=== PATIENT | male | born 1935 | race Caucasian/White ===

== ENCOUNTER → 2024-08-30 09:36 | Outpatient (REF) | payer OTHER, SELFPAY | LOC: HWRAD 09:36 | PROVIDERS: ATTENDING PHYSICIAN Urology; FAMILY PHYSICIAN Family Medicine | DX: R31.9 Hematuria, unspecified (principal) | CPT/HCPCS: 76770 ==

== ENCOUNTER 2024-09-24 16:26 | Emergency (ER) | payer OTHER, SELFPAY ==
[2024-09-24 16:32] VITALS: BP 128/75
[2024-09-24 17:06] VITALS: BP 158/88
--- NOTE | 2024-09-24 17:21 | ED.CVA ---
History of Present Illness
General
Chief Complaint: CVA/TIA Symptoms
Source: patient
Exam Limitations: none
Time Seen by Provider: 09/24/24 16:49
Onset of Stroke Symptoms
Onset of symptoms known: No
Time pt last seen normal is known: No
History of Present Illness
History of Present Illness:
89-year-old male fairly healthy presents with 2 to 3 days worth of fatigue fever cough and confusion. Family states he has been mixing his words up. He denies a headache or chest pain. There has been no vomiting. They were concerned for
potential stroke giving his mixing up of words. He lives independently and still works. No other complaints at this time
Past History
Past History
ED Past Medical History: Cancer (Right kidney), HTN, Hypercholesterolemia and Other (Hematuria, Urinary retention, ,)
ED Past Surgical History: Appendectomy, Urological (R kidney removed for CA) and Other (Hernia repair, Brain tumor)
Social History
Tobacco: Non-smoker
Alcohol: None
Drug: None
Personal:
Living: with family
Employment: Retired
Family History
Family History: Other (Noncontributory)
Phy Exam
Physical Exam
Physical Exam:
General: Well-appearing male no acute respiratory distress
HEENT: Normocephalic atraumatic
Heart: Regular rate and rhythm no murmurs lungs: Clear no wheeze
Abdomen is soft nontender nondistended no guarding or rebound
Neurologic exam: Alert and oriented normal gait no drift finger-nose [id number] intact. No facial asymmetry no dysarthria or aphasia
Extremities: No cyanosis or edema
Course
Orders/Labs/Results
Orders:
Orders
09/24/24 16:39
CT Head W/o Iv Contrast Urgent
Comment:
Reason For Exam: expressive aphasia x2 days
09/24/24 17:00
Basic Metabolic Panel Urgent
COVID-19 Antigen Urgent
Source: Nasal Swab
Complete Blood Count/With Diff Urgent
Urine Microscopic Reflex Cult Urgent
Urine Reflex Culture from [facility] [Urinalysis Reflex To Culture] Urgent
Date Specimen was Collected: 09/24/24
Time Specimen was Collected: 16:56
Influenza A+B Rapid Molecular Urgent
MANUEL Source: Nasal Swab
Specimen Description:
09/24/24 17:40
CR Chest - 2 Views Urgent
Comment:
Reason For Exam: weakness
Abnormal Lab Results
09/24/24
17:00
RBC 4.54 L 10^6/uL
(4.70-6.10)
MCHC 32.9 L g/dL
(33.0-37.0)
Absolute Monos (auto) 0.7 H 10^3/uL
(0.1-0.6)
Monocytes % 13.7 H %
(1.7-9.3)
BUN 35 H mg/dl
(9-20)
Creatinine 1.5 H mg/dL
(0.7-1.3)
Glucose 103 H mg/dl
(70-99)
Urine Bacteria (Reflex) Few A
(Negative)
Urine Albumin (Reflex) 2+ A
(Neg - Trace)
09/24/24 17:00
09/24/24 17:00
Vital Signs
Initial and Last Documented VS:
Initial Vital Signs
Temp Pulse Resp BP Pulse Ox
98.3 F 76 18 128/75 99
09/24/24 16:32 09/24/24 16:32 09/24/24 16:32 09/24/24 16:32 09/24/24 16:32
Last Documented Vital Signs
Temp Pulse Resp BP Pulse Ox
98.3 F 60 19 135/76 97
09/24/24 16:32 09/24/24 18:30 09/24/24 18:30 09/24/24 18:00 09/24/24 18:30
MDM/Problems Addressed
Differential Diagnosis Includes:
Confusion weakness fever. Consider encephalopathy from infection such as COVID flu or electrolyte abnormality. Also consider CVA however less likely.
Will check COVID and flu test chest x-ray urinalysis CT of head and basic labs
*Critical Care Note
Total Time (30-74mins, 75-104mins- exclusive of procedures): Not Applicable
Update Note
Update Note:
Patient reexamined looks well CT head negative chest x-ray clear patient tested positive for influenza. Kidney functions at baseline with a creatinine of 1.5. Discussion was had with patient and family. I do not think patient's symptoms are
patient care representative of a stroke but more so weakness from having the flu. Will beyond the window for Tamiflu. Patient wishes to go home. Patient's family comfortable with this as well supportive care recommended. Stable for discharge
ED Attending Note
-
Portions of this chart may have been created with voice recognition software.� Occasional wrong word or��sound alike� substitutions may have occurred due to the inherent limitations of voice recognition software.
Discharge Plan
Departure
Patient Disposition: Home (Routine Discharge)
Date of Disposition: 09/24/24
Time of Disposition: 19:45
Patient with high blood pressure during this ER visit?: No
Discharge Problem:
Influenza A
Instructions: Flu, Delirium (Confusion) (DC)
Prescriptions:
No Action
acetaminophen 325 MG tablet
650 mg PO Q6HPRN PRN (Reason: mild pain/ fever>100.5F) 0RF
Referrals:
Michoacano Agrawal DO [Family Provider] -
Activity Restrictions/Additional Instructions:
As discussed, you have the flu. Rest. Drink plenty of fluids. Use Tylenol or ibuprofen if needed for fever. Return here for worsening symptoms otherwise follow-up with your doctor
Interventions
Interventions:
*Risk Screen - Suicide Last Done: 09/24/24 16:36
*General Assessment Last Done: 09/24/24 17:01
*Neglect/Abuse Screening Last Done: 09/24/24 16:36
*ED COVID-19 Vaccine History Last Done: 09/24/24 16:36
ED- Pulmonary Assessment Last Done: 09/24/24 17:05
ED- Neurological Assessment Last Done: 09/24/24 17:05
ED- Cardiac Assessment Last Done: 09/24/24 17:05
ED Swallowing Screen Last Done: 09/24/24 17:05
Discharge Date and Time
Print Language: [id number]
[2024-09-24 17:26] LABS: % Basophils 0.4 % (0-2); % Eosinophils 2.1 % (0-6); % Immature Granulocytes 0.2 % (0-0.5); % Lymphocytes 27.7 % (20.5-51.1); % Monocytes 13.7 % (1.7-9.3); % Neutrophils 55.9 % (42.2-75.2); Absolute Eosinophils 0.1 10^3/uL (0-0.7); Absolute Lymphocytes 1.3 10^3/uL (1.2-3.4); Absolute Monocytes 0.7 10^3/uL (0.1-0.6); Absolute Neutrophils 2.7 10^3/uL (1.4-6.5); Hematocrit 41.6 % (39.0-52.0); Hemoglobin 13.7 g/dL (13.0-18.0); Mean Corp Hgb Conc. 32.9 g/dL (33.0-37.0); Mean Corpuscular Hgb 30.2 pg (27.0-31.0); Mean Corpuscular Volume 91.6 fL (80.0-94.0); Mean Platelet Volume 8.7 fL (7.4-10.4); Nucleated Red Blood Cells % 0 % (-); Platelet Count 174 10^3/uL (130-400); Red Blood Cell Count 4.54 10^6/uL (4.70-6.10); Red Cell Dist. Width 14.5 % (11.5-14.5); Urine Albumin 2+ (Neg - Trace); Urine Bilirubin Negative (Negative); Urine Character Clear (Clear); Urine Color Yellow; Urine Glucose Negative (Negative); Urine Ketone Negative (Negative); Urine Leukocyte Negative (Negative); Urine Nitrite Negative (Negative); Urine Occult Blood Negative (Negative); Urine Urobilinogen Negative (Neg - 1+); White Blood Cell Count 4.8 10^3/uL (4.8-10.8)
[2024-09-24 17:30] LABS: Urine Mucus Few
[2024-09-24 17:31] LABS: Urine Bacteria Few (Negative); Urine Red Blood Cell 0-2 /HPF (0-2)
[2024-09-24 17:41] LABS: COVID-19 Antigen Negative (Negative)
[2024-09-24 17:50] LABS: Blood Urea Nitrogen 35 mg/dl (9-20); Glucose 103 mg/dl (70-99); eGFR 44.23
[2024-09-24 17:51] LABS: Calcium 8.9 mg/dl (8.4-10.2); Carbon Dioxide 23 mmol/L (22-30); Chloride 99 mmol/L (98-107); Sodium 136 mmol/L (135-145)
[2024-09-24 18:00] VITALS: BP 135/76
== END 2024-09-24 20:25 | disposition home or self-care (01) ==
LOC: EMR 16:26
PROVIDERS: Physician Assistant; Student in an Organized Health Care Education/Training Program; EMERGENCY PHYSICIAN Emergency Medicine; FAMILY PHYSICIAN Family Medicine
DX: J10.1 Influenza due to other identified influenza virus with other respiratory manifestations (principal); I10 Essential (primary) hypertension; E78.00 Pure hypercholesterolemia, unspecified; Z85.528 Personal history of other malignant neoplasm of kidney; Z90.49 Acquired absence of other specified parts of digestive tract
CPT/HCPCS: 99284; 70450; 71046; 80048; 81003; 81015; 85025; 87502; 87811

== ENCOUNTER → 2024-10-05 12:13 | Outpatient (REF) | payer OTHER, SELFPAY | LOC: RAD 12:13 | PROVIDERS: ATTENDING PHYSICIAN Family Medicine | DX: H44.70 Unspecified retained (old) intraocular foreign body, nonmagnetic (principal) | CPT/HCPCS: 70030 ==